=== PATIENT | female | born 2000 | race Two or more races ===

== ENCOUNTER 2024-10-01 17:20 | Emergency (ER) | payer MEDICAID, SELFPAY ==
[2024-10-01] VITALS (17 sets, daily range): BP systolic 107–119; BP diastolic 57–78; PULSE 90–106; RESP 15–100; TEMP 36.8–37; O2SAT 97–99; BMI 23.9
--- NOTE | 2024-10-01 18:13 | PD.EDHA ---
ED Headache RME/HPI General Chief Complaint: Headache Stated Complaint: HEADACHE 24 WEEKS GESTATION Time Seen by Provider: 10/01/24 17:28 Arrival date/time: 10/01/24 17:20 RME / HPI RME / HPI Narrative: Headache x 2-3 days. 24 weeks OB. No pelvic pain or vaginal bleeding. No vision changes, chest pain or dizziness. No medications or treatments since onset. Related Data Allergies Allergy/AdvReac Type Severity Reaction Status Date / Time NKA* Allergy Uncoded 10/01/24 17:23 Past Medical History Past Medical History CARDIAC: Positive Hypertension Surgical History OTHER SURGICAL HX: Past surgical history Social History SMOKING STATUS: Never smoker SUBSTANCE USE: does not use ALCOHOL: Never Course Orders Category Date Time Status heart tone auscultation Q4H Care 10/01/24 18:13 Active UA [Urinalysis] Stat Lab 10/01/24 18:13 Ordered Acetaminophen Tab [Tylenol ES Tab] Med 10/01/24 18:13 Discontinued 1,000 mg PO X1 ONE Vital Signs Vital signs: Vital Signs Temperature 98.2 F 10/01/24 18:03 Pulse Rate 106 H 10/01/24 18:03 Respiratory Rate 16 10/01/24 18:03 Blood Pressure 119/78 10/01/24 18:03 Pulse Oximetry (%) 99 10/01/24 18:03 Oxygen Delivery Method Room Air 10/01/24 18:03 Headache Medications / Prescriptions Medication administrations:: Medication Administration History Discontinued Medications Acetaminophen (Acetaminophen 500 Mg Tablet) 1,000 mg PO X1 ONE Stop: 10/01/24 18:14 Discharge Plan Prescriptions/Referrals Referrals: No Primary/Family,Physician [Primary Care Provider] - In 1 week Patient/Caregiver Discharge Instructions Print Language: Mozambican
[2024-10-01 18:48] LABS: Collection Type, Urine Clean Catch
[2024-10-01 18:57] LABS: Bacteria,Urine 1+; Bilirubin,Urine Negative (Negative); Blood,Urine 2+ (Negative); Clarity,Urine Turbid (Clear/Hazy); Color,Urine Yellow (Lt Yel-Yel); Glucose, Urine Negative (Negative); Hyaline Casts,Urine < 1 /hpf (0-1); Ketones,Urine Negative (Negative); Leukocyte Esterase,Urine Positive (Negative); Nitrite,Urine Negative (Negative); PH,Urine 6.5 (5.0-7.0); Protein,Urine 1+ (Neg - Trace); RBC,Urine 68 /hpf (0-3); Squamous Epithelial Cell,Urine 47 /hpf (0-5); WBC,Urine 8 /hpf (0-5)
--- NOTE | 2024-10-01 19:48 | PD.EDADDENDU ---
Emergency Room Addendum Addendum Narrative: 23 year old female currently (GA 25 5/7 weeks). Here with abdominal pain, decreased movement, headache, and dizziness. High risk for preemclamsia. Exam unremarkable. Cleared for further care in our L&D department. Saad Baig MD
--- NOTE | 2024-10-01 21:00 | PC.NURSE ---
PT WAS SEND FROM OB TO ER AGAIN, PT SAID SHE DOES NOT NEED TO BE SEEN AGAIN.
== END 2024-10-01 19:01 | disposition home or self-care (01) ==
LOC: SERX 18:50 → S4SX 19:11
PROVIDERS: Physician Assistant; Emergency Provider Emergency Medicine
DX: O26.892 Other specified pregnancy related conditions, second trimester (principal); O36.8120 Decreased fetal movements, second trimester, not applicable or unspecified; R51.9 Headache, unspecified; R10.9 Unspecified abdominal pain; R42 Dizziness and giddiness; O09.892 Supervision of other high risk pregnancies, second trimester; Z3A.25 25 weeks gestation of pregnancy
CPT/HCPCS: 59025; 81001; 99283

== ENCOUNTER 2025-01-05 11:25 | Outpatient (CLI) | payer MEDICAID, SELFPAY ==
[2025-01-05 11:35] VITALS: BP 120/76; PULSE 74
--- NOTE | 2025-01-05 11:36 | XR_ITS ---
Examination: Complete OB ultrasound greater than 14 weeks Date and time of exam: January 05, 2025 1209 hours INDICATIONS: Diagnosis small for gestational age Findings: Viable intrauterine single fetus with single amniotic sac presentation cephalic Cardiac motion 141 BPM Placenta anterior grade 2 Umbilical cord insertion 3 vessel seen Amniotic fluid index 8.1 cm spine posterior Cervix 3.7 cm closed Ovaries obscured by bowel gas. Composite estimated gestational age based on BPD, head circumference, abdominal circumference, femur length is 36 weeks 2 days Estimated weight 2978 g. Survey of intracranial anatomy, spinal anatomy, abdominal anatomy, four-chamber heart performed with no abnormalities identified. Impression: Viable intrauterine gestation cephalic presentation Estimated gestational age 36 weeks 2 days.
--- NOTE | 2025-01-05 11:36 | XR_ITS ---
Examination: Biophysical profile, ultrasound Date and time of exam: January 05, 2025, 1230 hours INDICATIONS: Nonreactive NST at the doctor's office today Technique: Multiple transabdominal sonographic images of the pelvis abdomen obtained. Attention is directed to the breathing movement, gross body movement, amniotic fluid volume and tone. Findings: Amniotic fluid index 8.6 cm Total biophysical profile is 8 of 8. breathing movement is 2. Gross body movement is 2. tone is 2. Qualitative amniotic fluid volume is 2 Impression: Biophysical profile is 8 of 8.
[2025-01-05 11:49] VITALS: BP 120/76; PULSE 74; RESP 18; RESP 99; TEMP 36.8; BMI 25.9
== END 2025-01-05 13:29 | disposition home or self-care (01) ==
LOC: S4S1 11:27 → S4SX 11:28
PROVIDERS: Referring Provider Obstetrics & Gynecology; Visit Provider Obstetrics & Gynecology
DX: Z34.03 Encounter for supervision of normal first pregnancy, third trimester (principal); Z36.9 Encounter for antenatal screening, unspecified; Z3A.36 36 weeks gestation of pregnancy
CPT/HCPCS: 59025; 76805; 76819

== ENCOUNTER 2025-01-13 02:35 | Inpatient (IN) | payer MEDICAID, SELFPAY ==
[2025-01-13] VITALS (16 sets, daily range): BP systolic 106–147; BP diastolic 64–96; PULSE 70–107; RESP 15–16; TEMP 36.7–37.1; BMI 27.0
[2025-01-13] MEDS: RINGERS LACTATED 1000 ML 1,000 ML 100 ML IV (03:04)
[2025-01-13 03:09] LABS: Basophils # (Auto) 0.0 Thou/mm3 (0.0-0.2); Basophils % (Auto) 0 % (0-2.5); Eosinophils # (Auto) 0.0 Thou/mm3 (0.0-0.5); Eosinophils % (Auto) 0 % (0-10); Hematocrit 30.0 % (36.0-46.0); Hemoglobin 10.4 g/dL (12.0-16.0); Immature Granulocytes Auto 0.05 Thou/mm3 (0.00-0.00); Lymphocytes # (Auto) 3.8 Thou/mm3 (1.0-4.8); Lymphocytes % (Auto) 34 % (10-50); Mean Corpuscular HGB Conc 34.7 g/dl (31.0-37.0); Mean Corpuscular Hemoglobin 32.5 pg (25.0-35.0); Mean Corpuscular Volume 94 fL (80-100); Monocytes # (Auto) 0.7 Thou/mm3 (0.0-0.8); Monocytes % (Auto) 6 % (0-12); Neutrophils # (Auto) 6.5 Thou/mm3 (1.8-7.7); Neutrophils % (Auto) 58 % (37-80); Nucleated Red Blood Cell # 0.00 Thou/mm3 (0.00-0.00); Nucleated Red Blood Cell % 0 /100 WBC (0); Platelet Count 295 Thou/mm3 (140-440); RDW Standard Deviation 43.7 fL (36.4-46.3); Red Blood Count 3.20 Miln/mm3 (4.00-5.20); White Blood Count 11.1 Thou/mm3 (3.6-11.0)
[2025-01-13 03:15] LABS: Amphetamine/Metham Scrn,Ur OB Negative (Negative); Benzoylecgonine Screen, Ur OB Negative (Negative); Opiate Screen,Urine OB Negative (Negative); THC Screen,Urine OB Negative (Negative)
--- NOTE | 2025-01-13 03:15 | PD.LDHP ---
Documentation for date of: 01/13/25 OB Labor/Induct. HPI History of Present Illness : 1 Para: 0 Term pregnancies: 0 pregnancies: 0 Living children: 0 History of Abortions: Spontaneous and Elective: 0 History of sections: No History of : No Date of last menstrual period: 04/11/24 EMILY: 01/16/25 Gestational Age (weeks): 39 Gestational Age (days): 4 Gestational age based on last menstrual period: 39 Indication for induction: other (IUGR) History of present illness: 24 yo IUP 39w4d by LMP and 2nd trimester US presents for IOL for IUGR . US on 01/09 at [facility] shows EFW 2645g consistent with growth at the 4th% and AC at < 1st%. Patient has care at [facility]. She was referred to [facility] on 11/30 due to suspected IUGR however the [facility] US at that time showed overall growth at the 18th% with AC at the 18th% with normal anatomy and therefore no IUGR and no follow up was recommended. A recent US was also done a [facility] on 01/05 showing growth at 3000g. Due to concerns about small growth she is being induced at 39 weeks. Patient had a treated urine culture in the 1st trimeter positive for GBS on 06/07/2024. Treated for iron def. anemia in with admitting Hb 10.2. PMH: Iron def anemia Meds: ASA 81mg, PNV Allergies: NKDA PSH: denies FamHx: DM, HTN. Niece (age 3) with CHD - planning heart surgery. 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 Reports normal movment. Past Medical History Surgical History SURGICAL: Negative Section Meds Home Medications and Allergies Home Medications ?Medication ?Instructions ?Recorded ?Confirmed ?Type vits no.126-ferrous fum 1 tab PO QDAY 01/13/25 01/13/25 History 28 mg iron-folic acid 800 mcg tablet (Classic ) Allergies Allergy/AdvReac Type Severity Reaction Status Date / Time NKA* Allergy Uncoded 01/13/25 02:39 OB Exam Physical Exam Vital signs: Temp Pulse BP 98.8 F 97 126/96 H 01/13/25 02:49 01/13/25 02:49 01/13/25 02:49 Routine HEENT Exam Comments: Oropharynx sclera clear. Routine Respiratory Exam Comments: CTA B/L Routine Cardiovascular Exam Comments: RRR Routine Abdominal Exam Comments: Gravid, nontender fundus, 34 cm. Detailed Labor and Delivery Exam Dilation (cm): 1 Effacement (%): 50 station: -3 Presentation: Vertex Membranes: intact Comments: Per RN Exam Routine Extremities Exam Comments: Nontender Routine Skin Exam Comments: No rashes or lesions Routine Neurological Exam Comments: No deficit OB Results Labs 01/13/25 03:00 Labs: Short CBC 01/13/25 Range/Units 03:00 WBC 11.1 H (3.6-11.0) Thou/mm3 Hgb 10.4 L (12.0-16.0) g/dL Hct 30.0 L (36.0-46.0) % Plt Count 295 (140-440) Thou/mm3 Impressions Impression: IUP 39w4d by best dates IUGR GBS UTI 1st Trimester Initial BP 126/96 : Anxiety v. Gestational HTN v. Preclampsia. Induction of Labor Anticipate . Ampicillin GBS prophylaxis when in labor PIH Labs Informed consent obtained patient aware of the risk, complications, alternatives and benefits of induction and agrees. She is aware of risks and complications of OVD and C/S and agrees with these mode of delivery if indicated.
[2025-01-13 05:18] LABS: Collection Type, Urine Clean Catch
[2025-01-13 05:23] LABS: Basophils # (Auto) 0.0 Thou/mm3 (0.0-0.2); Basophils % (Auto) 0 % (0-2.5); Eosinophils # (Auto) 0.1 Thou/mm3 (0.0-0.5); Eosinophils % (Auto) 0 % (0-10); Hematocrit 30.2 % (36.0-46.0); Hemoglobin 10.2 g/dL (12.0-16.0); Immature Granulocytes Auto 0.06 Thou/mm3 (0.00-0.00); Lymphocytes # (Auto) 3.3 Thou/mm3 (1.0-4.8); Lymphocytes % (Auto) 29 % (10-50); Mean Corpuscular HGB Conc 33.8 g/dl (31.0-37.0); Mean Corpuscular Hemoglobin 32.3 pg (25.0-35.0); Mean Corpuscular Volume 96 fL (80-100); Monocytes # (Auto) 0.7 Thou/mm3 (0.0-0.8); Monocytes % (Auto) 7 % (0-12); Neutrophils # (Auto) 7.0 Thou/mm3 (1.8-7.7); Neutrophils % (Auto) 63 % (37-80); Nucleated Red Blood Cell # 0.00 Thou/mm3 (0.00-0.00); Nucleated Red Blood Cell % 0 /100 WBC (0); Platelet Count 262 Thou/mm3 (140-440); RDW Standard Deviation 44.5 fL (36.4-46.3); Red Blood Count 3.16 Miln/mm3 (4.00-5.20); White Blood Count 11.1 Thou/mm3 (3.6-11.0)
[2025-01-13 05:27] LABS: Bilirubin,Urine Negative (Negative); Blood,Urine 1+ (Negative); Clarity,Urine Turbid (Clear/Hazy); Color,Urine Lt-Yellow (Lt Yel-Yel); Glucose, Urine Negative (Negative); Ketones,Urine Negative (Negative); Leukocyte Esterase,Urine Negative (Negative); Nitrite,Urine Negative (Negative); PH,Urine 7.0 (5.0-7.0); Protein,Urine Negative (Neg - Trace); RBC,Urine 3 /hpf (0-3); Specific Gravity,Urine 1.015 (1.001-1.035); Squamous Epithelial Cell,Urine 14 /hpf (0-5); Urobilinogen,Urine Negative mg/dL (0.0-1.0); WBC,Urine 2 /hpf (0-5)
[2025-01-13 05:33] LABS: Creatinine,Random Urine 71 mg/dL (30-125); Protein Total, Random Urine 30 mg/dL (1-14)
[2025-01-13 05:41] LABS: Fibrinogen 511 mg/dL (175-375); INR 0.9 (0.9-1.3); Partial Thromboplastin Time 25.2 Seconds (22.0-36.0); Prothrombin Time 9.8 Seconds (9.0-12.2)
[2025-01-13 05:51] LABS: Alanine Aminotransferase 10 U/L (10-49); Albumin, Serum 4.0 gm/dL (3.5-5.0); Albumin/Globulin Ratio 1.5 (1.2-2.2); Alkaline Phosphatase 165 U/L (46-116); Anion Gap 12 (7-16); Aspartate Amino Transferase 17 U/L (0-34); BUN/Creatinine Ratio 12 Ratio (12-20); Bilirubin,Total 0.3 mg/dL (0.3-1.2); Blood Urea Nitrogen 7 mg/dL (9-23); Calcium 9.0 mg/dL (8.3-10.6); Calcium (Corrected) 9.0 mg/dL (8.5-10.1); Carbon Dioxide 21.7 mMol/L (20.0-31.0); Chloride 107 mMol/L (98-107); Creatinine (Component) 0.6 mg/dL (0.6-1.3); Estimated Creatinine Clearance 124.6 mL/min (>60); Globulin 2.6 gm/dL (2.3-3.5); Glucose 85 mg/dL (74-106); Osmolality,Calculated 278 (275-295); Potassium 3.9 mMol/L (3.4-5.1); Sodium 141 mMol/L (136-145); Total Protein 6.6 gm/dL (5.7-8.2); Uric Acid 4.1 mg/dL (3.1-7.8); eGFR > 60 See Note
[2025-01-13 06:35] LABS: Syphilis Nonreactive (Nonreactive)
--- NOTE | 2025-01-13 17:13 | PD.LDPN ---
Documentation for date of: 01/13/25 OB Labor Progress Note Pain Control Pain control: tolerating well Comments: Starting to feel contractions with Cervidil in place for 12 hours. Pelvic Exam Dilation (cm): 2 Effacement (%): 70 station: -2 Amniotic membrane status: Intact Contractions Monitor mode: External Contraction frequency: 3-7 Contraction intensity: Mild Status status: Category l Assessment and Plan Assessment: induction ongoing Plan OB labor note: continuous present management Comments: Consider 50 mcg oral Cytotec if contractions space. Patient desires epidural in active labor.
[2025-01-14] VITALS (143 sets, daily range): BP systolic 94–160; BP diastolic 55–91; PULSE 59–155; RESP 16–20; TEMP 36.1–38.7; O2SAT 94–100
[2025-01-14] MEDS: RINGERS LACTATED 1000 ML 1,000 ML 100 ML IV ×2 (02:08→10:25)
[2025-01-14] MEDS: OXYTOCIN in NS 30 units 30 UNIT/500 ML BAG IV (02:10)
[2025-01-14] MEDS: Ampicillin Inj 2,000 MG in SODIUM CHLORIDE 0.9% (POP) 100 ML 200 MG IV (02:15)
[2025-01-14] MEDS: fentaNYL CIT INJ 50 mCg/ML AMP 2ML 100 MCG IVP (05:00)
[2025-01-14] MEDS: Ampicillin Inj 1,000 MG in SODIUM CHLORIDE 0.9% (Popper) 50 ML 50 MG IV ×2 (06:12→10:23)
[2025-01-14] MEDS: MINERAL OIL 30 ML UDC TOP (13:05)
[2025-01-14] MEDS: METHYLERGONOVINE INJ 0.2 MG/ML VIAL IM (13:20)
[2025-01-14] MEDS: OXYTOCIN in NS 20 units 20 UNIT/1,000 ML BAG 125 UNIT IV (13:20)
[2025-01-14] MEDS: IBUPROFEN TAB 400 MG TABLET 800 MG PO (13:23)
[2025-01-14] MEDS: BENZO/LANO/ALOE (Dermoplast) 60 GM CAN 1 SPRAY TOP (13:23)
[2025-01-14] MEDS: ACETAMINOPHEN 325 MG TABLET 650 MG PO (15:40)
[2025-01-14] MEDS: ceFAZolin/D5W 2 GM IV 2 GM/100 ML BAG IV ×2 (15:40→22:40)
--- NOTE | 2025-01-14 17:13 | PD.LDDELS ---
Data ([place]) Data Hx Section: No Maternal Blood Type: O Pos Rubella Titre: Positive RPR: Non-reactive Labs: Negative: RPR, Hepatitis B, HIV, Chlamydia, Gonorrhea and Group Beta Strep : 1 Term: 0 : 0 Livin Abortions: Spontaneous & Theraputic: 0 Delivery Data ([place]) Labor Data Initiation of labor: Induction Induction/Augmentation Agent: Cytotec-PO, Cervidil, Pitocin and Artificial ROM ROM date: 01/14/25 ROM time: 04:15 Amniotic membrane rupture type: Spontaneous Amniotic fluid description: Clear Delivery Data EDC: 01/16/25 EDC calculated by:: LMP/early US confirmation Date of arrival to unit: 01/12/25 Time of arrival to unit: 03:00 Onset of labor date: 01/14/25 Onset of labor time: 06:00 Complete dilation date: 01/14/25 Complete dilation time: 12:35 [place] delivery date: 01/14/25 delivery time: 13:11 Gestational age (weeks): 39 Gestational age (days): 5 Placenta delivery date: 01/14/25 Placenta delivery time: 13:19 Stage 1 total time: Labor - Stage 1 Duration 6 hours and 35 minutes Delivered by: Latonya GONZALEZ Delivery nurse: Josee Mckeon nurse: Isabel Dee RN Footwear Stitcher at delivery: Yes Support person(s) at delivery: FOB Other staff at delivery: Mell Mo RN Delivery Method Delivery method: Normal Vaginal Delivery Presentation: Vertex position: OP Anesthesia Type Anesthesia Type: Epidural Delivery Room Medications Delivery room medications: Methergine 0.2 mg IM, Pitocin 20 u IV and Cytotec 800 TX Placenta Placenta delivery description: Spontaneous Cord blood sent to lab: Yes cord blood collection: Cord Blood Type Episiotomy Episiotomy description: None Lacerations #2: Vaginal: 1st degree (Bilateral first-degree sulcal tears repaired with 4-0 chromic.) Perineal repair Sutures used for repair: 4.0 Chromic EBL Estimated blood loss (ml): 400 Umbilical Cord cord description: 3 Vessels, Nuchal Cord (X 3) and Loose Additional Procedures The patient is a 24-year-old G1, P0 with all care uncomplicated with Dr Quinones. She was admitted January 13 around 3:00 in the morning for an induction of labor secondary to suspected SGA. On presentation, she was 1 cm dilated. She had Cervidil placed at 4 AM 01/13/2025 which was removed at 4:00 PM after 12 hours. The patient had progressed to 2 cm dilatation. She had oral Cytotec started. She ruptured her membranes approximately 4:00 in the morning on 01/14/2025 she did get epidural placed and we began Pitocin augmentation. She progressed to complete by about 1235 pm on 01/14/2025. She then pushed approximately 20 minutes delivering a liveborn female at 1311 on 01/14/2025. Findings liveborn female in the direct OP presentation with a loose nuchal cord x 3 . No meconium. Apgars were 8 and 9, weight was 6 pounds 4 ounces. The placenta was complete, spontaneous, grossly normal. The patient sustained bilateral first-degree sulcal lacerations repaired in a standard fashion using 4-0 chromic. After delivery, the patient was noted to have some brisk bleeding. The patient was given IM Methergine and 800 mcg of Cytotec rectally. Vigorous uterine massage was then performed. At the end of these interventions, her bleeding was noted to be scant. EBL was 400 cc. Complications were none. Condition :both mom and infant were in stable condition the delivery room. Of note the pediatric staff was present at delivery for a suspected SGA baby including the chief juvenile probation officer. Complications Complications: None [place] Data ([facility]) Data order: 1 's gender: Female weight (gms): 2830 g Weight (pounds): 6 lbs and 3.8 ozs 1 minute: 8 5 minutes: 9
[2025-01-14 21:59] LABS: Basophils # (Auto) 0.1 Thou/mm3 (0.0-0.2); Basophils % (Auto) 0 % (0-2.5); Eosinophils # (Auto) 0.0 Thou/mm3 (0.0-0.5); Eosinophils % (Auto) 0 % (0-10); Hematocrit 26.5 % (36.0-46.0); Hemoglobin 9.2 g/dL (12.0-16.0); Immature Granulocytes Auto 0.09 Thou/mm3 (0.00-0.00); Lymphocytes # (Auto) 3.2 Thou/mm3 (1.0-4.8); Lymphocytes % (Auto) 17 % (10-50); Mean Corpuscular HGB Conc 34.7 g/dl (31.0-37.0); Mean Corpuscular Hemoglobin 32.1 pg (25.0-35.0); Mean Corpuscular Volume 92 fL (80-100); Monocytes # (Auto) 1.3 Thou/mm3 (0.0-0.8); Monocytes % (Auto) 7 % (0-12); Neutrophils # (Auto) 14.1 Thou/mm3 (1.8-7.7); Neutrophils % (Auto) 75 % (37-80); Nucleated Red Blood Cell # 0.00 Thou/mm3 (0.00-0.00); Nucleated Red Blood Cell % 0 /100 WBC (0); Platelet Count 265 Thou/mm3 (140-440); RDW Standard Deviation 42.7 fL (36.4-46.3); Red Blood Count 2.87 Miln/mm3 (4.00-5.20); White Blood Count 18.7 Thou/mm3 (3.6-11.0)
[2025-01-14] MEDS: DOCUSATE SOD 100 MG CAPSULE PO (22:39)
--- NOTE | 2025-01-14 22:48 | PD.LDDELS ---
Data ([place]) Data Hx Section: No Maternal Blood Type: O Pos Rubella Titre: Positive RPR: Non-reactive Labs: Negative: RPR, Hepatitis B, HIV, Chlamydia, Gonorrhea and Group Beta Strep and Unknown: Herpes Type 1 and Herpes Type 2 : 1 Term: 0 : 0 Livin Abortions: Spontaneous & Theraputic: 0 Delivery Data ([place]) Labor Data Initiation of labor: Induction Induction/Augmentation Agent: Cytotec-PO, Cervidil, Pitocin and Artificial ROM ROM date: 01/14/25 ROM time: 04:15 Amniotic membrane rupture type: Spontaneous Amniotic fluid description: Clear Delivery Data Date of arrival to unit: 01/12/25 Time of arrival to unit: 03:00 Onset of labor date: 01/14/25 Onset of labor time: 06:00 Complete dilation date: 01/14/25 Complete dilation time: 12:35 delivery date: 01/14/25 delivery time: 13:11 Placenta delivery date: 01/14/25 Placenta delivery time: 13:19 Stage 1 total time: Labor - Stage 1 Duration 6 hours and 35 minutes Delivered by: Latonya GONZALEZ Delivery nurse: Josee Mckeon nurse: Isabel Dee RN Accounting Manager Controller at delivery: Yes Support person(s) at delivery: FOB Other staff at delivery: Mell Mo RN Delivery Method Delivery method: Normal Vaginal Delivery Presentation: Vertex Anesthesia Type Anesthesia Type: Epidural Placenta Placenta delivery description: Spontaneous Cord blood sent to lab: Yes cord blood collection: Cord Blood Type Episiotomy Episiotomy description: None EBL Estimated blood loss (ml): 400 Umbilical Cord cord description: 3 Vessels, Nuchal Cord (X 3) and Loose Data ([place]) [place] Data order: 1 's gender: Female weight (gms): 2830 g Weight (pounds): 6 lbs and 3.8 ozs 1 minute: 8 5 minutes: 9
[2025-01-15 00:12] VITALS: BP 118/75; PULSE 87; RESP 16; TEMP 37; O2SAT 97
[2025-01-15 04:33] VITALS: BP 117/74; PULSE 83; RESP 16; TEMP 36.8; O2SAT 98
[2025-01-15 05:24] LABS: Basophils # (Auto) 0.0 Thou/mm3 (0.0-0.2); Basophils % (Auto) 0 % (0-2.5); Eosinophils # (Auto) 0.0 Thou/mm3 (0.0-0.5); Eosinophils % (Auto) 0 % (0-10); Hematocrit 23.5 % (36.0-46.0); Immature Granulocytes Auto 0.05 Thou/mm3 (0.00-0.00); Lymphocytes # (Auto) 3.7 Thou/mm3 (1.0-4.8); Lymphocytes % (Auto) 23 % (10-50); Mean Corpuscular HGB Conc 33.6 g/dl (31.0-37.0); Mean Corpuscular Hemoglobin 32.2 pg (25.0-35.0); Mean Corpuscular Volume 96 fL (80-100); Monocytes # (Auto) 1.0 Thou/mm3 (0.0-0.8); Monocytes % (Auto) 6 % (0-12); Neutrophils # (Auto) 11.0 Thou/mm3 (1.8-7.7); Neutrophils % (Auto) 70 % (37-80); Nucleated Red Blood Cell # 0.00 Thou/mm3 (0.00-0.00); Nucleated Red Blood Cell % 0 /100 WBC (0); Platelet Count 229 Thou/mm3 (140-440); RDW Standard Deviation 45.1 fL (36.4-46.3); Red Blood Count 2.45 Miln/mm3 (4.00-5.20); White Blood Count 15.7 Thou/mm3 (3.6-11.0)
[2025-01-15 05:25] LABS: Hemoglobin 7.9 g/dL (12.0-16.0)
[2025-01-15] MEDS: ceFAZolin/D5W 2 GM IV 2 GM/100 ML BAG IV (06:03)
--- NOTE | 2025-01-15 07:10 | ESPR_ITS ---
RE: MAC BARBER : 2000 DATE OF SERVICE: 01/15/2025 day #1. The patient denies any problem or complaint. Tmax 100.3. OBJECTIVE: Vital Signs: Stable. She is afebrile. Abdomen: Fundus firm. Extremities: Nontender. ASSESSMENT: day #1, status post spontaneous vaginal delivery. Fever. PLAN: Treat for Endometritis. Possible Discharge when afebrile for 24 hours. DT: 06:38:58 TT: 07:08:00 Ref: [id number] - TID: [id number] MTDD
[2025-01-15 08:00] VITALS: BP 118/68; PULSE 90; RESP 18; TEMP 37.1; O2SAT 98
[2025-01-15] MEDS: PRENATAL VITAMIN/FE FUM/FA TABLET 1 TAB PO (08:37)
[2025-01-15] MEDS: DOCUSATE SOD 100 MG CAPSULE PO (08:37)
[2025-01-15 11:12] VITALS: BP 111/58; PULSE 77; RESP 16; TEMP 37.4; O2SAT 97
[2025-01-15] MEDS: AMPICILLIN/SULBAC INJ 3 GM in SODIUM CHLORIDE 0.9% (POP) 100 ML IV ×2 (11:44→18:07)
--- NOTE | 2025-01-15 13:33 | PC.SS ---
MANAGER LEARNING conducted bedside contact with the patient to address nursing referral indicating patient possessed history of THC use.? Toxicology screening at admission negative.? MANAGER LEARNING introduced self and role.? Present with patient was Arjun CENTENO.? Patient gave consent for FOB to be present during discussion.? MANAGER LEARNING discussed basis of referral.? Patient confirmed use of THC.? Patient stated that during time of use, unaware of .? Patient stated that use to address insomnia.? Upon confirmation of , patient ceased use.? Patient states not planning to continue recreational use of THC.? , [place]; is the patient?s first child.? Infant was delivered naturally.? Patient plans of bottle feeding the .? OB services provided by Dr. Quinones.? Patient confirms consistency with OB appointments.? Patient is pending with SNAP, WIC and TANF.? Patient denies history of alcohol/drug abuse.? Patient denies CWS intervention.? Patient denies episodes of domestic violence.? Patient denies possessing a history of mental health, reports no current possession of depression or anxiety.? Patient has access to appropriate supplies and equipment; to include a car seat.? FOB will provide transportation upon discharge.? Patient describes possessing support system consisting of FOB, parents and extended family.? MANAGER LEARNING provided the patient with community resources to include Parenting Network and Warm Line.? No further intervention required at this time, social worker aide will be available to address any further concerns.? MANAGER LEARNING updated bedside nurse.?
[2025-01-15 16:28] VITALS: BP 112/76; PULSE 91; RESP 18; TEMP 36.4
[2025-01-15 19:40] VITALS: BP 131/83; PULSE 79; RESP 16; TEMP 36.8; O2SAT 99
[2025-01-15 22:36] LABS: Gentamicin, Random 0.6 mcg/mL (4.0-10.0)
[2025-01-16] MEDS: AMPICILLIN/SULBAC INJ 3 GM in SODIUM CHLORIDE 0.9% (POP) 100 ML IV ×2 (00:13→06:06)
[2025-01-16 04:03] VITALS: BP 123/81; PULSE 83; RESP 17; TEMP 36.8; O2SAT 98
[2025-01-16 06:39] LABS: Basophils # (Auto) 0.0 Thou/mm3 (0.0-0.2); Basophils % (Auto) 0 % (0-2.5); Eosinophils # (Auto) 0.2 Thou/mm3 (0.0-0.5); Eosinophils % (Auto) 1 % (0-10); Hematocrit 22.1 % (36.0-46.0); Immature Granulocytes Auto 0.06 Thou/mm3 (0.00-0.00); Lymphocytes # (Auto) 3.8 Thou/mm3 (1.0-4.8); Lymphocytes % (Auto) 30 % (10-50); Mean Corpuscular HGB Conc 34.4 g/dl (31.0-37.0); Mean Corpuscular Hemoglobin 32.5 pg (25.0-35.0); Mean Corpuscular Volume 94 fL (80-100); Monocytes # (Auto) 0.9 Thou/mm3 (0.0-0.8); Monocytes % (Auto) 7 % (0-12); Neutrophils # (Auto) 7.7 Thou/mm3 (1.8-7.7); Neutrophils % (Auto) 61 % (37-80); Nucleated Red Blood Cell # 0.00 Thou/mm3 (0.00-0.00); Nucleated Red Blood Cell % 0 /100 WBC (0); Platelet Count 216 Thou/mm3 (140-440); RDW Standard Deviation 45.8 fL (36.4-46.3); Red Blood Count 2.34 Miln/mm3 (4.00-5.20); White Blood Count 12.6 Thou/mm3 (3.6-11.0)
[2025-01-16 06:40] LABS: Hemoglobin 7.6 g/dL (12.0-16.0)
[2025-01-16 07:25] VITALS: BP 146/85; BP 147/91; PULSE 68; RESP 16; TEMP 36.6; O2SAT 99
--- NOTE | 2025-01-16 07:45 | ESPR_ITS ---
Subjective Subjective Interval history: Delivery type: Patient doing well this morning. No acute complaints. Ambulating, tolerating p.o. and voiding without difficulty. HTN/Pre-Eclampsia screen: No chest pain, shortness of breath, headache, visual changes, epigastric or right upper quadrant pain. Breast-feeding, lochia diminishing. Bowel: Flatus+/ BM+ Exam Vital Signs Temp Pulse Resp BP Pulse Ox O2 Del Method 98.3 F 83 17 123/81 98 Room Air 01/16/25 04:03 01/16/25 04:03 01/16/25 04:03 01/16/25 04:03 01/16/25 04:03 01/16/25 04:03 Constitutional Constitutional: no acute distress Routine HEENT Exam Head: Present normocephalic and atraumatic Eye: Present EOMI and PERRL ENT: Present mucous membranes moist Routine Neck Exam Neck: Present supple and trachea midline Routine Respiratory Exam Respiratory: Present chest non-tender, lungs clear, normal breath sounds and no resp distress Routine Cardiovascular Exam Cardiovascular: Present RRR Routine Abdominal Exam Abdominal: Present soft and normoactive bowel sounds Routine Extremities Exam Extremities: Present full ROM Routine Skin Exam Skin: Present intact, dry and warm Routine Neurological Exam Neurological: Present alert, oriented X3 and CN II-XII intact Routine Psychiatric Exam Psychiatric: Present normal affect and normal thought process Objective Labs 01/16/25 05:05 01/13/25 05:08 Labs: Laboratory Results - last 24 hr 01/15/25 01/16/25 22:03 05:05 WBC 12.6 H RBC 2.34 L Hgb 7.6 L Hct 22.1 L MCV 94 MCH 32.5 MCHC 34.4 RDW Std Deviation 45.8 Plt Count 216 Neut % (Auto) 61 Lymph % (Auto) 30 [place] % (Auto) 7 Eos % (Auto) 1 Baso % (Auto) 0 Neut # (Auto) 7.7 Lymph # (Auto) 3.8 [place] # (Auto) 0.9 H Eos # (Auto) 0.2 Baso # (Auto) 0.0 Immature Gran # (Auto) 0.06 H Absolute Nucleated RBC 0.00 Immature Gran % 1 H Nucleated RBC % 0 Random Gentamicin 0.6 L Assessment & Plan Problem List (1) Intrauterine growth restriction (IUGR) affecting care of mother: Status: Acute (2) Impacted cerumen of right ear: Status: Acute (3) Posterior auricular lymphadenopathy: Status: Acute (4) (normal spontaneous vaginal delivery): Status: Acute Assessment and plan: PPD/POD#2 endometritis patient is currently on Unasyn and gentamicin afebrile for over 24 hours 1. Continue routine care 2. Transition to PO meds. 3. Encourage to ambulate/ breast-feed 4. Anticipate discharge home today. Time Spent With Patient Time: Total time spent is greater than 50% in coordination of care (as documented) at patient's floor/unit and/or counseling patient:
--- NOTE | 2025-01-16 07:47 | ESDS_ITS ---
DS: Providers Provider Date of admission: 01/13/25 02:35 Primary care physician: Raleigh Camargo MD Admitting Provider: Joe Quinones MD Attending Provider on Admission: Joshua Finley MD Attending Provider on DC: Joshua Finley MD Discharging Provider: Joshua Finley MD DS: Diagnosis Discharge Diagnosis (1) (normal spontaneous vaginal delivery): Status: Acute (2) Intrauterine growth restriction (IUGR) affecting care of mother: Status: Acute Problem List Completed Was Problem List Reviewed/Reconciled?: Yes Summary/Hosp Course Brief History: 24 yo IUP 39w4d by LMP and 2nd trimester US presents for IOL for IUGR . US on 01/09 at [facility] shows EFW 2645g consistent with growth at the 4th% and AC at < 1st%. Patient has care at [facility]. She was referred to [facility] on 11/30 due to suspected IUGR however the [facility] US at that time showed overall growth at the 18th% with AC at the 18th% with normal anatomy and therefore no IUGR and no follow up was recommended. A recent US was also done a [facility] on 01/05 showing growth at 3000g. Due to concerns about small growth she is being induced at 39 weeks. Patient had a treated urine culture in the 1st trimeter positive for GBS on 06/07/2024. Treated for iron def. anemia in with admitting Hb 10.2. PMH: Iron def anemia Meds: ASA 81mg, PNV Allergies: NKDA PSH: denies FamHx: DM, HTN. Niece (age 3) with CHD - planning heart surgery. sister had history of heart murmur SocHx: working in [employer], completed [employer] school Peripartum Data Delivery Method: Normal Vaginal Delivery Episiotomy Description: None Time Spent with Patient Time attestation: Total time spent providing and/or coordinating discharge services: Exam Vital Signs Temp Pulse Resp BP Pulse Ox O2 Del Method 98.3 F 83 17 123/81 98 Room Air 01/16/25 04:03 01/16/25 04:03 01/16/25 04:03 01/16/25 04:03 01/16/25 04:03 01/16/25 04:03 Discharge Plan Plan Patient Disposition: HOME (Self Care) Patient condition on transfer: Stable Prescriptions/Referrals Prescriptions/Med Rec: New amoxicillin-pot clavulanate 875-125 mg tablet 1 tab PO BID Qty: 10 0RF ibuprofen 600 mg tablet 600 mg PO Q6H PRN (Reason: pain) Qty: 30 0RF ferrous sulfate 325 mg (65 mg iron) tablet 325 mg PO BID Qty: 60 1RF No Action Classic 28 mg iron- 800 mcg tablet 1 tab PO QDAY Patient Comments: TAKE 1 TABLET BY MOUTH EVERY DAY Referrals: Raleigh Camargo MD [Primary Care Provider] - Joe Quinones MD [Physician] - Patient/Caregiver Discharge Instructions Discharge Activity: activity as tolerated Other Discharge Activity Instructions:: Follow up office 6 weeks. Education Materials: After a Vaginal , After Delivery Concerns, Breast Care After , Incision Care After Vaginal , Nutrition While , Understanding Depression, : Caring for Yourself, Feel Healthy After Print Language: Tajik Stand Alone Forms: Beth Award Info., Patient Portal Info Letter Discharge Order Discharge Orders: Discharge (Routine); Ordered 01/16/25 Ordered By: Joshua Finley Planned Discharge Date 01/16/25
[2025-01-16] MEDS: DOCUSATE SOD 100 MG CAPSULE PO (09:17)
[2025-01-16] MEDS: PRENATAL VITAMIN/FE FUM/FA TABLET 1 TAB PO (09:17)
[2025-01-16 11:00] VITALS: BP 121/82
== END 2025-01-16 12:22 | disposition home or self-care (01) | DRG 560 ==
LOC: S4SX 01-14 13:57 → S4NX 01-14 16:25
PROVIDERS: Obstetrics & Gynecology; Admitting Provider Specialist; PCP Family Medicine; Visit Provider Obstetrics & Gynecology
DX: O36.5930 Maternal care for other known or suspected poor fetal growth, third trimester, not applicable or unspecified (principal); Z37.0 Single live birth; O99.824 Streptococcus B carrier state complicating childbirth; Z3A.39 39 weeks gestation of pregnancy; O69.81X0 Labor and delivery complicated by cord around neck, without compression, not applicable or unspecified; O70.0 First degree perineal laceration during delivery; O99.02 Anemia complicating childbirth; O24.92 Unspecified diabetes mellitus in childbirth; O23.43 Unspecified infection of urinary tract in pregnancy, third trimester; O99.344 Other mental disorders complicating childbirth; D50.9 Iron deficiency anemia, unspecified; F41.9 Anxiety disorder, unspecified; O86.12 Endometritis following delivery; O86.4 Pyrexia of unknown origin following delivery
CPT/HCPCS: 36415; 59409; 80053; 80170; 80307; 81001; 82570; 84156; 84550; 85025; 85384; 85610; 85730; 86780; 86850; 86900; 86901; 90707; 94762; J0290; J0295; J0689; J1580; J2210; J2590; J2795; J3010; J7050; J7120; S0191; A9270